=== PATIENT | female | born 2000 | race American Indian/Alaskan Native ===

== ENCOUNTER 2020-09-25 11:10 | Outpatient (CLI) | payer BC | END 2020-09-25 11:11 | disposition home or self-care (01) | LOC: LABHHL 11:10 | PROVIDERS: ATTEND Surgery | DX: N63.42 Unspecified lump in left breast, subareolar (principal) | CPT/HCPCS: 88305 ==

== ENCOUNTER 2020-10-01 15:08 | Outpatient (CLI) | payer BC ==
--- NOTE | 2020-10-01 15:46 | Mammography Report ---
LEFT DIAGNOSTIC MAMMOGRAM INDICATION: Status post ultrasound guided biopsy of left breast lesion. COMPARISON: None available. The biopsy was performed at an outside facility. FINDINGS: The left breast demonstrates extremely dense fibroglandular tissue which decreases the sens itivity of mammography. A coil biopsy marker is located within the left breast at the 7:00 to 8:00 po sition at anterior depth. This whitaker the site of reported recent ultrasound-guided biopsy. No definit e mammographic mass is identified, however the presence of extremely dense tissue does limit evaluati on. No suspicious mass, microcalcifications, or other abnormality is identified mammographically. IMPRESSION: Left breast mammographic images document coil biopsy marker in the left breast at the 7:00 to 8:00 po sition at anterior depth. Recommend correlation with ultrasound findings and biopsy results. BI-RADS Category 4: Suspicious for Malignancy. Signer Name: Tucker Ernandez MD Signed: 10/01/2020 3:42 PM Workstation Name: [id number]
== END 2020-10-01 15:09 | disposition home or self-care (01) ==
LOC: SPVWC 15:08
PROVIDERS: ATTEND Surgery
DX: N63.20 Unspecified lump in the left breast, unspecified quadrant (principal); R92.8 Other abnormal and inconclusive findings on diagnostic imaging of breast